=== PATIENT | male | born 1960 ===

== ENCOUNTER 2021-12-10 05:50 | Day surgery (SDC) | payer OTHER ==
[~2021-12-10 05:50] MED LIST: JARDIANCE25 MG PO; [UNRECOGNIZED DRUG - OTHER] PO
[2021-12-10] MEDS ORDERED: NEURONTIN300 MG PO (07:47)
[2021-12-10] MEDS ORDERED: TYLENOL ARTHRI650 MG PO (07:47)
[2021-12-10] MEDS ORDERED: MIRALAX17 GM PO (07:47)
[2021-12-10] MEDS ORDERED: ULTRAM50 MG PO (07:47)
== END 2021-12-10 14:16 | disposition home or self-care (01) ==
LOC: CIR.AMB 05:50
PROVIDERS: ATTEND Surgery
DX: K42.0 Umbilical hernia with obstruction, without gangrene (principal); Z20.822 Contact with and (suspected) exposure to COVID-19